=== PATIENT | male | born 1965 | race Caucasian/White ===

== ENCOUNTER 2019-11-27 14:09 | Emergency (ER) | payer BC ==
--- NOTE | 2019-11-27 15:57 | CR ---
Chest: Portable view of the chest was obtained. Comparison: No prior chest imaging is available. Heart size and mediastinum are normal. AICD is noted. Lungs are clear with no acute parenchymal change. Old healed right sided rib fracture is noted. Impression: 1. Findings as noted above. 2. Nothing acute is seen on portable chest x-ray. Diagnostic code #2 This report was dictated in MDT
--- NOTE | 2019-11-27 16:37 | EDM.PDOC ---
ED HPI GENERAL MEDICAL PROBLEM - General Chief Complaint: Respiratory Problem Stated Complaint: BODY ACHES,SOB X 1 WEEK Time Seen by Provider: 11/27/19 15:13 Source of Information: Reports: Patient History Limitations: Reports: No Limitations - History of Present Illness INITIAL COMMENTS - FREE TEXT/NARRATIVE: Patient is a 54-year-old male who presents to the emergency department with complaints of a one-week history of generalized body aches and intermittent shortness of breath. Last evening he had a headache, as well as nausea with 2 episodes of vomiting. He denies any shortness of breath, nausea, or vomiting since he awoke today. He also states he has not eaten yet today. He denies any known fever or chills. He denies abdominal pain. He denies chest pain. 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 Generalized Pain Score (Numeric/FACES): 1 - Related Data Allergies Allergy/AdvReac Type Severity Reaction Status Date / Time No Known Allergies Allergy Verified 11/27/19 14:39 Home Meds: Home Meds Clopidogrel [Plavix] 75 mg PO DAILY 11/27/19 [History] Insulin Aspart [NovoLOG] 50 unit SUBCUT ACLUNCH 11/27/19 [History] Quinapril [Accupril] 10 mg PO DAILY 11/27/19 [History] atorvaSTATin [Lipitor] 40 mg PO DAILY 11/27/19 [History] carvediloL [Carvedilol] 25 mg PO DAILY 11/27/19 [History] Past Medical History HEENT History: Reports: Impaired Vision Cardiovascular History: Reports: Automatic Implantable Cardioverter Defibrillators, Bypass, Pacemaker Endocrine/Metabolic History: Reports: Diabetes, Type I Basal Rate (Units/hr): 19.4 Do You Give Correction Boluses or Sliding Scale: Yes Correction Bolus/Sliding Scale Comments: Pt states he does boluses based on Carbs when he eats Patient Able to Demonstrate: Current Pump Settings (Basal Rates) Hematologic History: Reports: Blood Transfusion(s) - Past Surgical History Cardiovascular Surgical History: Reports: AICD, Coronary Artery Stent, Pacer Social & Family History - Family History Family Medical History: Noncontributory - Tobacco Use Smoking Status *Q: Current Every Day Smoker Years of Tobacco use: 11 Packs/Tins Daily: 1 - Caffeine Use Caffeine Use: Reports: Coffee, Soda - Recreational Drug Use Recreational Drug Use: No ED ROS GENERAL - Review of Systems Review Of Systems: See Below Constitutional: Reports: Decreased Appetite, Other (Generalized body aches). Denies: Fever, Chills HEENT: Reports: No Symptoms Respiratory: Reports: Shortness of Breath. Denies: Wheezing, Cough Cardiovascular: Reports: No Symptoms. Denies: Chest Pain, Lightheadedness, Palpitations Endocrine: Reports: No Symptoms GI/Abdominal: Reports: Nausea, Vomiting. Denies: Abdominal Pain, Diarrhea : Reports: No Symptoms Musculoskeletal: Reports: Muscle Pain (Generalized) Skin: Reports: No Symptoms Neurological: Reports: Headache. Denies: Dizziness Psychiatric: Reports: No Symptoms Hematologic/Lymphatic: Reports: No Symptoms Immunologic: Reports: No Symptoms ED EXAM, GENERAL - Physical Exam Exam: See Below Exam Limited By: No Limitations General Appearance: Alert, WD/WN, No Apparent Distress Respiratory/Chest: No Respiratory Distress, Lungs Clear, Normal Breath Sounds, No Accessory Muscle Use, Chest Non-Tender Cardiovascular: Normal Peripheral Pulses, Regular Rate, Rhythm, No Edema, No Gallop, No JVD, No Murmur, No Rub Neurological: Alert, Oriented, CN II-XII Intact, Normal Cognition, Normal Gait, Normal Reflexes, No Motor/Sensory Deficits Psychiatric: Normal Affect, Normal Mood Skin Exam: Warm, Dry, Intact, Normal Color, No Rash Course - Vital Signs Last Recorded V/S: Last Vital Signs Temp 98.3 F 11/27/19 14:34 Pulse 68 11/27/19 14:34 Resp 18 11/27/19 14:34 BP 139/60 11/27/19 14:34 Pulse Ox 96 11/27/19 14:34 - Orders/Labs/Meds Labs: Laboratory Tests 11/27/19 11/27/19 11/27/19 Range/Units 15:30 15:31 15:31 WBC 7.48 (4.23-9.07) K/mm3 RBC 4.23 L (4.63-6.08) M/mm3 Hgb 13.3 L (13.7-17.5) gm/dl Hct 39.8 L (40.1-51.0) % MCV 94.1 H (79.0-92.2) fl MCH 31.4 (25.7-32.2) pg MCHC 33.4 (32.2-35.5) g/dl RDW Std Deviation 44.0 H (35.1-43.9) fL Plt Count 280 (163-337) K/mm3 MPV 9.7 (9.4-12.3) fl Neut % (Auto) 63.1 (34.0-67.9) % Lymph % (Auto) 25.8 (21.8-53.1) % [place] % (Auto) 9.9 (5.3-12.2) % Eos % (Auto) 0.7 L (0.8-7.0) Baso % (Auto) 0.4 (0.1-1.2) % Neut # (Auto) 4.72 (1.78-5.38) K/mm3 Lymph # (Auto) 1.93 (1.32-3.57) K/mm3 [place] # (Auto) 0.74 (0.30-0.82) K/mm3 Eos # (Auto) 0.05 (0.04-0.54) K/mm3 Baso # (Auto) 0.03 (0.01-0.08) K/mm3 D-Dimer, Quantitative 0.42 (0.19-0.50) mg/L Sodium 138 (136-145) mEq/L Potassium 4.3 (3.5-5.1) mEq/L Chloride 102 (98-107) mEq/L Carbon Dioxide 25 (21-32) mEq/L Anion Gap 15.3 H (5-15) BUN 25 H (7-18) mg/dL Creatinine 1.2 (0.7-1.3) mg/dL Est Cr Clr Drug Dosing 71.40 mL/min Estimated GFR (MDRD) > 60 (>60) mL/min BUN/Creatinine Ratio 20.8 H (14-18) Glucose 302 H (74-106) mg/dL Calcium 8.4 L (8.5-10.1) mg/dL Total Bilirubin 0.6 (0.2-1.0) mg/dL AST 54 H (15-37) U/L ALT 41 (16-63) U/L Alkaline Phosphatase 92 (46-116) U/L C-Reactive Protein 2.0 H* (<1.0) mg/dL Total Protein 6.5 (6.4-8.2) g/dl Albumin 3.4 (3.4-5.0) g/dl Globulin 3.1 gm/dL Albumin/Globulin Ratio 1.1 (1-2) - Re-Assessments/Exams Free Text/Narrative Re-Assessment/Exam: 11/27/19 16:36 Hematology was grossly unremarkable. WBCs were normal. D-dimer was negative. CRP was minimally elevated at 2.0. Chest x-ray was normal. Patient's vital signs are normal he is oxygenating 96 to 98% on room air. Respiratory rate is normal at 18, blood pressure was normal at 139/60. He is afebrile at 98.3. Discussed with patient that is likely suffering from a viral infection. We will check him for coronavirus and he will be notified when results are available. Recommend that he go home and rest and ensure adequate fluid intake. He should continue to self isolate until he receives the results of the test and until assymptomatic. Discharge instructions as documented Departure - Departure Time of Disposition: 16:36 Disposition: Home, Self-Care 01 Condition: Good Clinical Impression: Viral infection - Discharge Information *PRESCRIPTION DRUG MONITORING PROGRAM REVIEWED*: No *COPY OF PRESCRIPTION DRUG MONITORING REPORT IN PATIENT LORIN: No Instructions: Viral Illness, Adult Referrals: Melissa Bush [Primary Care Provider] - Additional Instructions: You were seen in the emergency department today for a 1 week history of body aches, headache, nausea, vomiting, and intermittent shortness of breath. He work-up included blood work as well as a chest x-ray. These were found to be normal. As we discussed, you are likely suffering from a viral infection. You have been tested for the coronavirus. Results of this did generally take 24 to 48 hours to become available. At that time you will be notified. Recommend that you go home and rest. Ensure you are taking in an adequate amount of fluid. You may use [id number] Tylenol or ibuprofen as needed for any di scomfort. Continue to self isolate until you receive the results of your tests and are asymptomatic for 72 hours. If your symptoms should worsen in any way, please not hesitate to return to the emergency department. Sepsis Event Note (ED) - Evaluation Sepsis Screening Result: No Definite Risk - Focused Exam Vital Signs: Vital Signs Temp Pulse Resp BP Pulse Ox 11/27/19 14:34 98.3 F 68 18 139/60 96
== END 2019-11-27 17:05 | disposition home or self-care (01) ==
LOC: JD.ED 14:09
DX: B34.9 Viral infection, unspecified (principal); E10.9 Type 1 diabetes mellitus without complications; F17.210 Nicotine dependence, cigarettes, uncomplicated; Z79.02 Long term (current) use of antithrombotics/antiplatelets; Z79.899 Other long term (current) drug therapy; Z20.828 Contact with and (suspected) exposure to other viral communicable diseases
CPT/HCPCS: 36415; 71045; 71045-26; 80053; 85025; 85379; 86140; 99282; 99283-25; U0002

== ENCOUNTER 2021-01-30 11:09 | Emergency (ER) | payer BC ==
[2021-01-30] MEDS ORDERED: Sodium Chloride 0.9% 10 ML Syringe FLUSH PRN (12:39)
--- NOTE | 2021-01-30 12:54 | EDM.PDOC ---
ED HPI GENERAL MEDICAL PROBLEM - General Chief Complaint: Respiratory Problem Stated Complaint: covid poss Time Seen by Provider: 01/30/21 12:10 Source of Information: Reports: Patient, RN Notes Reviewed History Limitations: Reports: No Limitations - History of Present Illness INITIAL COMMENTS - FREE TEXT/NARRATIVE: Patient is a 56-year-old male presenting to the emergency department with complaints of congestion, loss of taste and smell, mild cough, shortness of breath. Symptoms began on Saturday of last week. Reports that he noticed that he lost his taste 2 days ago. Patient has a history of type 1 diabetes. States his sugars have been slightly higher than normal. Currently 182. He wears a insulin pump and CGM monitor. Denies any chest pain. Had no nausea vomiting or diarrhea. Does report decreased appetite. Denies any known fever. - Related Data Allergies Allergy/AdvReac Type Severity Reaction Status Date / Time No Known Allergies Allergy Verified 11/27/19 14:39 Home Meds: Home Meds Clopidogrel [Plavix] 75 mg PO DAILY 11/27/19 [History] Insulin Aspart [NovoLOG] 50 unit SUBCUT ACLUNCH 11/27/19 [History] Quinapril [Accupril] 10 mg PO DAILY 11/27/19 [History] atorvaSTATin [Lipitor] 40 mg PO DAILY 11/27/19 [History] carvediloL [Carvedilol] 25 mg PO DAILY 11/27/19 [History] dexAMETHasone [Decadron] 6 mg PO DAILY 5 Days #5 tablet 01/30/21 [Rx] Past Medical History HEENT History: Reports: Cataract, Impaired Vision Cardiovascular History: Reports: Automatic Implantable Cardioverter Defibrillators, Bypass, Pacemaker Endocrine/Metabolic History: Reports: Diabetes, Type I Insulin Pump Model and Quart[employer]er: MedBunndle MiniMScoopStake Date Insulin Bottle Opened: Humalog When was Your Last Insulin Site/Set Changed: few days ago Do You Have Enough Pump Supplies for Your Hospital Stay: Yes Hematologic History: Reports: Blood Transfusion(s) - Past Surgical History Cardiovascular Surgical History: Reports: AICD, Coronary Artery Stent, Pacer Social & Family History - Family History Family Medical History: No Pertinent Family History - Tobacco Use Tobacco Use Status *Q: Current Every Day Tobacco User Years of Tobacco use: 20 Packs/Tins Daily: 0.5 - Caffeine Use Caffeine Use: Reports: Coffee - Recreational Drug Use Recreational Drug Use: No ED ROS GENERAL - Review of Systems Review Of Systems: Comprehensive ROS is negative, except as noted in HPI. ED EXAM, GENERAL - Physical Exam Exam: See Below Exam Limited By: No Limitations General Appearance: Alert, WD/WN, No Apparent Distress Respiratory/Chest: No Respiratory Distress, Lungs Clear, Normal Breath Sounds, No Accessory Muscle Use, Chest Non-Tender Cardiovascular: Normal Peripheral Pulses, Regular Rate, Rhythm, No Edema, No Gallop, No JVD, No Murmur, No Rub GI/Abdominal: Normal Bowel Sounds, Soft, Non-Tender, No Organomegaly, No Distention, No Abnormal Bruit, No Mass Neurological: Alert, Oriented, CN II-XII Intact, Normal Cognition, Normal Gait, Normal Reflexes, No Motor/Sensory Deficits Psychiatric: Normal Affect, Normal Mood Skin Exam: Warm, Dry, Intact, Normal Color, No Rash Course - Vital Signs Last Recorded V/S: Last Vital Signs Temp 98.2 F 01/30/21 12:11 Pulse 64 01/30/21 12:11 Resp 20 01/30/21 12:11 BP 106/70 01/30/21 12:11 Pulse Ox 90 L 01/30/21 16:05 - Orders/Labs/Meds Labs: Laboratory Tests 01/30/21 01/30/21 01/30/21 Range/Units 12:07 12:24 12:24 WBC 10.48 H (4.23-9.07) K/mm3 RBC 4.61 L (4.63-6.08) M/mm3 Hgb 14.7 (13.7-17.5) gm/dl Hct 43.2 (40.1-51.0) % MCV 93.7 H (79.0-92.2) fl MCH 31.9 (25.7-32.2) pg MCHC 34.0 (32.2-35.5) g/dl RDW Std Deviation 43.1 (35.1-43.9) fL Plt Count 223 (163-337) K/mm3 MPV 10.3 (9.4-12.3) fl Neut % (Auto) 65.3 (34.0-67.9) % Lymph % (Auto) 17.6 L (21.8-53.1) % [place] % (Auto) 12.5 H (5.3-12.2) % Eos % (Auto) 4.2 (0.8-7.0) Baso % (Auto) 0.3 (0.1-1.2) % Neut # (Auto) 6.85 H (1.78-5.38) K/mm3 Lymph # (Auto) 1.84 (1.32-3.57) K/mm3 [place] # (Auto) 1.31 H (0.30-0.82) K/mm3 Eos # (Auto) 0.44 (0.04-0.54) K/mm3 Baso # (Auto) 0.03 (0.01-0.08) K/mm3 D-Dimer, Quantitative < 0.19 L (0.19-0.50) mg/L Sodium (136-145) mEq/L Potassium (3.5-5.1) mEq/L Chloride (98-107) mEq/L Carbon Dioxide (21-32) mEq/L Anion Gap (5-15) BUN (7-18) mg/dL Creatinine (0.7-1.3) mg/dL Est Cr Clr Drug Dosing mL/min Estimated GFR (MDRD) (>60) mL/min BUN/Creatinine Ratio (14-18) Glucose (70-99) mg/dL Calcium (8.5-10.1) mg/dL Total Bilirubin (0.2-1.0) mg/dL AST (15-37) U/L ALT (16-63) U/L Alkaline Phosphatase (46-116) U/L Troponin I (0.00-0.056) ng/mL C-Reactive Protein (<1.0) mg/dL NT-Pro-B Natriuret Pep (0-125) pg/mL Total Protein (6.4-8.2) g/dl Albumin (3.4-5.0) g/dl Globulin gm/dL Albumin/Globulin Ratio (1-2) SARS-CoV-2 RNA (ERIKA) Positive H (NEGATIVE) 01/30/21 01/30/21 Range/Units 12:24 12:24 WBC (4.23-9.07) K/mm3 RBC (4.63-6.08) M/mm3 Hgb (13.7-17.5) gm/dl Hct (40.1-51.0) % MCV (79.0-92.2) fl MCH (25.7-32.2) pg MCHC (32.2-35.5) g/dl RDW Std Deviation (35.1-43.9) fL Plt Count (163-337) K/mm3 MPV (9.4-12.3) fl Neut % (Auto) (34.0-67.9) % Lymph % (Auto) (21.8-53.1) % [place] % (Auto) (5.3-12.2) % Eos % (Auto) (0.8-7.0) Baso % (Auto) (0.1-1.2) % Neut # (Auto) (1.78-5.38) K/mm3 Lymph # (Auto) (1.32-3.57) K/mm3 [place] # (Auto) (0.30-0.82) K/mm3 Eos # (Auto) (0.04-0.54) K/mm3 Baso # (Auto) (0.01-0.08) K/mm3 D-Dimer, Quantitative (0.19-0.50) mg/L Sodium 136 (136-145) mEq/L Potassium 4.5 (3.5-5.1) mEq/L Chloride 102 (98-107) mEq/L Carbon Dioxide 26 (21-32) mEq/L Anion Gap 12.5 (5-15) BUN 25 H (7-18) mg/dL Creatinine 1.1 (0.7-1.3) mg/dL Est Cr Clr Drug Dosing 76.50 mL/min Estimated GFR (MDRD) > 60 (>60) mL/min BUN/Creatinine Ratio 22.7 H (14-18) Glucose 227 H (70-99) mg/dL Calcium 8.6 (8.5-10.1) mg/dL Total Bilirubin 0.7 (0.2-1.0) mg/dL AST 11 L (15-37) U/L ALT 20 (16-63) U/L Alkaline Phosphatase 79 (46-116) U/L Troponin I < 0.017 (0.00-0.056) ng/mL C-Reactive Protein 7.9 H* (<1.0) mg/dL NT-Pro-B Natriuret Pep 431 H (0-125) pg/mL Total Protein 7.0 (6.4-8.2) g/dl Albumin 3.5 (3.4-5.0) g/dl Globulin 3.5 gm/dL Albumin/Globulin Ratio 1.0 (1-2) SARS-CoV-2 RNA (ERIKA) (NEGATIVE) Meds: Medications Discontinued Medications Generic Name Dose Route Start Last Admin Trade Name Freq PRN Reason Stop Dose Admin Diphenhydramine HCl 50 mg 01/30/21 13:50 Diphenhydramine 50 Mg/Ml Sdv IVPUSH ONETIME PRN hypersensitivity reaction Epinephrine HCl 0.3 mg 01/30/21 13:50 Epinephrine 1 Mg/Ml Sdv IM ONETIME PRN hypersensitivity reaction Famotidine 20 mg 01/30/21 13:50 Famotidine 20 Mg/2 Ml Sdv IVPUSH ONETIME PRN hypersensitivity reaction CASIRIVIMAB/IMDEVIMAB 10 ml/ 110 mls @ 220 mls/hr 01/30/21 14:30 Sodium Chloride IV 01/30/21 14:59 ONETIME ONE Methylprednisolone Sodium Succinate 125 mg 01/30/21 13:50 Methylprednisolone Sodium Succinate 125 Mg/2 Ml Sdv IVPUSH ONETIME PRN hypersensitivity reaction Sodium Chloride 10 ml 01/30/21 12:39 Sodium Chloride 0.9% 10 Ml Syringe FLUSH ASDIRECTED PRN Keep Vein Open Sodium Chloride 30 ml 01/30/21 14:00 Sodium Chloride 0.9% 10 Ml Syringe FLUSH ASDIRECTED KELLEN - Re-Assessments/Exams Free Text/Narrative Re-Assessment/Exam: 01/30/21 14:36 Hematology is significant for WBC minimally elevated at 10.48, glucose 227, CRP 7.9. Troponin and D-dimer are undetectably low. Covid is positive. Chest x- ray shows no acute abnormalities. Patient's oxygen saturation has been between 88 and 91% on room air. I spoke with patient to provide information about Regeneron treatment for patient I offered them the ``Patient and Caregiver NATASHA Jiang Fact Sheet to read and review I stated the drug has been approved by an emergency use authorization (EUA) pro cess and has not fully been FDA reviewed or approved The patient meets the EUA requirements I discussed there are other potential treatment options that are currently not FDA approved to treat COVID-19. Offered opportunity to ask questions and all questions were answered Patient voiced understanding and agreed to proceed with treatment for patient. 01/30/21 15:35 Patient has completed his Regeneron infusion without adverse effects. He is 1/2-hour into his waiting period. Oxygen saturations have maintained 88 to 91% on room air. Discussed with patient that I would like to discharge him home on home O2 to keep oxygen above 90%. I have written orders for this. He will also be sent home with a home pulse oximeter. Patient will be started on dexamethasone 6 mg orally for 5 days. Discussed that this will likely increase his blood sugars, however this should return to normal once treatment is finished. Discussed return precautions. Patient will be discharged home after his 1 hour waiting period is complete. 01/30/21 1720 Patient has completed his 1 hour waiting period without adverse event. He will be discharged home. Discharge instructions as documented. Departure - Departure Time of Disposition: 16:18 Disposition: Home, Self-Care 01 Condition: Good Clinical Impression: COVID-19 - Discharge Information *PRESCRIPTION DRUG MONITORING PROGRAM REVIEWED*: No *COPY OF PRESCRIPTION DRUG MONITORING REPORT IN PATIENT LORIN: No Prescriptions: dexAMETHasone [Decadron] 6 mg PO DAILY 5 Days #5 tablet Instructions: COVID-19 Frequently Asked Questions, COVID-19 Referrals: PCP,None [Primary Care Provider] - Forms: ED Department Discharge Additional Instructions: You were seen in the emergency department today for evaluation after experiencing Covid symptoms. Work-up included blood work, chest x-ray, and Covid test. Results of your work-up did indicate that you are Covid positive. Your chest x-ray is clear with no evidence of Covid pneumonia, however your oxygen saturations were slightly low in the emergency department. You did receive an infusion of Regeneron which is monoclonal antibodies. You have been sent home with home oxygen. Wear 1 to 2 L as needed to keep your oxygen saturations above 90%. You may use a pulse oximeter that you were sent home with check this. You have also been started on dexamethasone which is a steroid. Take this as prescribed. Be aware that this will likely increase your blood sugars, however after he conclude treatment with this, they should go back to normal. If you are requiring more than 3 L of oxygen to keep your saturations above 90%, or you experience any other new or worsening symptoms of concern, please do not hesitate to return to the emergency department for reevaluation. Sepsis Event Note (ED) - Evaluation Sepsis Screening Result: No Definite Risk
[2021-01-30] MEDS ORDERED: EPINEPHrine 1 MG/ML SDV IM PRN (13:50)
[2021-01-30] MEDS ORDERED: Famotidine 20 MG/2 ML SDV IVPUSH PRN (13:50)
[2021-01-30] MEDS ORDERED: diphenhydrAMINE 50 MG/ML SDV IVPUSH PRN (13:50)
[2021-01-30] MEDS ORDERED: methylPREDNISolone Sodium Succinate 125 MG/2 ML SDV IVPUSH PRN (13:50)
[2021-01-30] MEDS ORDERED: Sodium Chloride 0.9% 10 ML Syringe FLUSH SCH (14:00)
--- NOTE | 2021-01-30 14:05 | CR ---
Chest: Frontal view of the chest is obtained. Comparison: Prior chest x-ray 11/27/19. Heart size and mediastinum are within normal limits. Lungs show no acute parenchymal change. Previous sternotomy is noted with AICD. Surgical clips are seen within the right neck. Coronary artery stent appears to be present. Previous CABG also appears to be present. Old healed right-sided rib fracture is noted. Impression: 1. Findings as described above. 2. Nothing acute is seen on frontal chest x-ray. Diagnostic code #2
== END 2021-01-30 17:23 | disposition home or self-care (01) ==
LOC: JD.ED 11:09
DX: U07.1 COVID-19 (principal); E10.9 Type 1 diabetes mellitus without complications; Z79.899 Other long term (current) drug therapy; Z72.0 Tobacco use; Z79.02 Long term (current) use of antithrombotics/antiplatelets
CPT/HCPCS: 36415; 71045; 80053; 83880; 84484; 85025; 85379; 86140; 87635; 99285; M0243; Q0243; 99283; U0002

== ENCOUNTER 2022-04-07 19:09 | Emergency (ER) | payer BC ==
[2022-04-07] MEDS ORDERED: Sodium Chloride 0.9% 1,000 ML IV STA (20:30)
[2022-04-07 20:36] LABS: ESTIMATED GFR 78 mL/min (>60)
[2022-04-07 21:42] LABS: CORONAVIRUS COVID-19 NAA NEGATIVE (NEGATIVE)
[2022-04-07] MEDS ORDERED: cefTRIAXone 1 GM in Sodium Chloride 0.9% 100 ML IV ONE (21:59)
[2022-04-07] MEDS ORDERED: Insulin Regular, Human 100 Units/ML 3 ML Vial IV ONE (22:28)
== END 2022-04-07 23:35 | disposition home or self-care (01) ==
LOC: JD.ED 19:09
DX: E10.65 Type 1 diabetes mellitus with hyperglycemia (principal); L08.9 Local infection of the skin and subcutaneous tissue, unspecified; F17.210 Nicotine dependence, cigarettes, uncomplicated; Z79.899 Other long term (current) drug therapy; Z79.4 Long term (current) use of insulin; Z79.82 Long term (current) use of aspirin; Z20.822 Contact with and (suspected) exposure to COVID-19
CPT/HCPCS: 0240U; 36415; 80053; 81001; 82009; 82947; 85025; 86140; 96361; 96365; 99284; J0696; J1815; J7030

== ENCOUNTER 2024-12-22 17:20 | Emergency (ER) | payer BC | END 2024-12-22 19:51 | disposition home or self-care (01) | LOC: JD.ED 17:20 | DX: M79.662 Pain in left lower leg (principal); E10.9 Type 1 diabetes mellitus without complications; F17.200 Nicotine dependence, unspecified, uncomplicated; Z95.5 Presence of coronary angioplasty implant and graft; Z79.4 Long term (current) use of insulin; Z79.82 Long term (current) use of aspirin; Z79.899 Other long term (current) drug therapy | CPT/HCPCS: 73590; 93971; 99284; A9270; 99283 ==